=== PATIENT | female | born 1970 | race Caucasian/White ===

== ENCOUNTER 2017-08-25 15:17 | Emergency (ER) | payer SELFPAY ==
[~2017-08-25] VITALS: Ht 167.6 cm; Wt 84.3 kg
[~2017-08-25 15:17] MED LIST: ATEN25TA PO; ISOS30TA21 PO; LISI-170 PO; METO50TA82 PO; THYROID
[2017-08-25 17:06] LABS: HEMATOCRIT 48.3 % (34.6-47.8); WHITE BLOOD COUNT 9.8 x10^3/uL (3.4-10)
[2017-08-25 17:17] LABS: BLOOD UREA NITROGEN 16 mg/dL (7-18)
[2017-08-25 17:50] VITALS: BP 154/88
[2017-08-25] MEDS ORDERED: ATEN25TA PO (17:54)
[2017-08-25] MEDS ORDERED: METH10TA6 PO (17:54)
== END 2017-08-25 18:11 | disposition home or self-care (01) ==
LOC: ED 18:05
DX: I10 Essential (primary) hypertension (principal); Z76.0 Encounter for issue of repeat prescription; F17.200 Nicotine dependence, unspecified, uncomplicated; E05.90 Thyrotoxicosis, unspecified without thyrotoxic crisis or storm
CPT/HCPCS: 36415; 80048; 82040; 85025; 99284

== ENCOUNTER 2020-03-10 11:05 | Emergency (ER) | payer MEDICAID ==
[~2020-03-10] VITALS: Ht 165.1 cm; Wt 103.0 kg
[~2020-03-10 11:05] MED LIST changes: +METH10TA6 PO
[2020-03-10 11:54] LABS: MICROSCOPIC NOT IND
--- NOTE | 2020-03-10 12:14 | NUR ---
SUPERVISOR WEBBING: PT TO ROOM FROM LOBBY AT THIS TIME. ARTHUR
--- NOTE | 2020-03-10 12:14 | NUR ---
ADJUNCT FACULTY: PT AMBULATORY WITH STEADY GAIT TO ROOM
[2020-03-10] MEDS ORDERED: SODIUM CHLORIDE FLUSH 10ML SYR IVF ONE (12:30)
[2020-03-10 13:15] LABS: BASOPHILS % (AUTO) 1 % (0-1); EOSINOPHILS # (AUTO) 0.26 x10^3/uL (0-0.4); EOSINOPHILS % (AUTO) 3 % (1-7); LYMPHOCYTES # (AUTO) 2.02 x10^3/uL (1-3.4); LYMPHOCYTES % (AUTO) 23 % (22-44); MD NO; MEAN CORPUSCULAR HEMOGLOBIN 29.4 pg (27.0-34.8); MEAN CORPUSCULAR HGB CONC 33.2 g/dL (32.4-35.8); MEAN CORPUSCULAR VOLUME 88.4 fL (80-100); MEAN PLATELET VOLUME 8.3 fL (7.4-10.4); MONOCYTES # (AUTO) 0.62 x10^3/uL (0.2-0.8); MONOCYTES % (AUTO) 7 % (2-9); NEUTROPHILS # (AUTO) 5.73 x10^3/uL (1.8-6.8); NEUTROPHILS % (AUTO) 66 % (42-75); PLATELET COUNT 294 x10^3/uL (130-400); RED BLOOD COUNT 4.88 x10^6/uL (3.82-5.3); RED CELL DISTRIBUTION WIDTH 13.3 % (9.6-15.2)
[2020-03-10 13:26] LABS: ALANINE AMINOTRANSFERASE 25 U/L (12-78); ALBUMIN 3.5 g/dL (3.4-5.0); ANION GAP 7 mmol/L (5-15); CHLORIDE 110 mmol/L (98-107); CREATININE 0.63 mg/dL (0.55-1.02)
[2020-03-10 13:30] LABS: ALKALINE PHOSPHATASE 54 U/L (45-117); BILIRUBIN,TOTAL 0.5 mg/dL (0.2-1.0)
[2020-03-10 13:43] VITALS: BP 128/69
[2020-03-10 13:44] LABS: INTERNATIONAL NORMALIZED RATIO 0.95 (0.93-1.1); PROTHROMBIN TIME 10.1 Seconds (9.6-11.5)
--- NOTE | 2020-03-10 13:44 | NUR ---
PT UPDATED ON PLAN OF CARE. VERBALIZES UNDERSTANDING, DIOGENES ANY NEEDS OR CONCERNS, CALL LIGHT IN REACH.
[2020-03-10] MEDS ORDERED: OMNIPAQUE 350 MG/ML, 100ML BOTTLE ONE (14:26)
== END 2020-03-10 15:03 | disposition home or self-care (01) ==
LOC: ED 13:01
DX: R10.12 Left upper quadrant pain (principal); M54.9 Dorsalgia, unspecified; I24.9 Acute ischemic heart disease, unspecified; I10 Essential (primary) hypertension; E03.9 Hypothyroidism, unspecified; Z86.73 Personal history of transient ischemic attack (TIA), and cerebral infarction without residual deficits
CPT/HCPCS: 36415; 74177; 80053; 81003; 83690; 84703; 85025; 85610; 99285; Q9967

== ENCOUNTER 2020-06-24 10:39 | Emergency (ER) | payer MEDICAID ==
[~2020-06-24] VITALS: Ht 165.1 cm; Wt 96.6 kg
--- NOTE | 2020-06-24 11:00 | NUR ---
PT BLADDER SCANNED AND >400 MLS OF URINE OBSERVED.
[2020-06-24 11:23] LABS: BASOPHILS % (AUTO) 1 % (0-1); EOSINOPHILS % (AUTO) 2 % (1-7); LYMPHOCYTES % (AUTO) 27 % (22-44); MEAN CORPUSCULAR HEMOGLOBIN 29.1 pg (27.0-34.8); MEAN CORPUSCULAR HGB CONC 33.2 g/dL (32.4-35.8); MEAN PLATELET VOLUME 8.2 fL (7.4-10.4); MONOCYTES % (AUTO) 8 % (2-9); NEUTROPHILS % (AUTO) 62 % (42-75); PLATELET COUNT 245 x10^3/uL (130-400); RED BLOOD COUNT 5.12 x10^6/uL (3.82-5.3); RED CELL DISTRIBUTION WIDTH 13.9 % (9.6-15.2)
[2020-06-24 11:25] LABS: MD NO
[2020-06-24 11:32] LABS: ALBUMIN 3.6 g/dL (3.4-5.0); ANION GAP 5 mmol/L (5-15); CALCIUM 9.4 mg/dL (8.5-10.1); CHLORIDE 110 mmol/L (98-107); CREATININE 0.65 mg/dL (0.55-1.02)
--- NOTE | 2020-06-24 12:30 | NUR ---
CASTRO STARTED PER DR. HERNANDEZ WITH PT AGAIN TRYING TO VOID WITH MINIMAL OUTPUT. UA COLLECTED AND SENT TO THE LAB.
[2020-06-24 12:58] LABS: MICROSCOPIC NOT IND
--- NOTE | 2020-06-24 13:12 | NUR ---
CHART UP FOR MD RECHECK. PT AWARE.
[2020-06-24] MEDS ORDERED: OMNIPAQUE 350 MG/ML, 100ML BOTTLE ONE (14:06)
[2020-06-24] MEDS ORDERED: SODIUM CHLORIDE FLUSH 10ML SYR IVF ONE (14:30)
[2020-06-24] MEDS ORDERED: OMNIPAQUE 350 MG/ML, 150 ML BOTTLE ONE (14:51)
[2020-06-24 16:11] VITALS: BP 125/68
== END 2020-06-24 16:09 | disposition home or self-care (01) ==
LOC: ED 12:31
DX: R33.9 Retention of urine, unspecified (principal); I10 Essential (primary) hypertension; E05.90 Thyrotoxicosis, unspecified without thyrotoxic crisis or storm; Z87.891 Personal history of nicotine dependence
CPT/HCPCS: 36415; 51702; 74177; 80048; 81003; 82040; 85025; 99285; Q9967